=== PATIENT | male | born 1980 | race Caucasian/White ===

== ENCOUNTER → 2020-12-24 08:10 | Outpatient (BNVA) | payer MEDICARE, MEDICAID, SELFPAY | PROVIDERS: PCP Internal Medicine; Visit Provider Nurse Practitioner Family | DX: M54.16 Radiculopathy, lumbar region (principal); R10.12 Left upper quadrant pain; G89.29 Other chronic pain; Z90.81 Acquired absence of spleen | CPT/HCPCS: 99202 ==

== ENCOUNTER → 2024-08-14 12:54 | Outpatient (REF) | payer OTHER, SELFPAY | LOC: HO.SL 12:54 | PROVIDERS: PCP Internal Medicine; Visit Provider Psychiatry & Neurology Neurology | DX: G47.33 Obstructive sleep apnea (adult) (pediatric) (principal) | CPT/HCPCS: 95806 ==

== ENCOUNTER → 2024-08-14 19:00 | Outpatient (BNV) | payer OTHER, SELFPAY | PROVIDERS: PCP Internal Medicine; Visit Provider Internal Medicine | DX: R06.83 Snoring (principal); G47.10 Hypersomnia, unspecified | CPT/HCPCS: 95806 ==